=== PATIENT | female | born 2000 | race Two or more races ===

== ENCOUNTER 2023-11-15 14:26 | Outpatient (CLI) | payer OTHER | END 2023-11-15 14:41 | disposition home or self-care (01) | LOC: RAD 14:26 | PROVIDERS: ATTEND General Practice | DX: R05.9 Cough, unspecified (principal); D69.6 Thrombocytopenia, unspecified; R22.1 Localized swelling, mass and lump, neck; M54.2 Cervicalgia; M32.9 Systemic lupus erythematosus, unspecified; D69.9 Hemorrhagic condition, unspecified ==

== ENCOUNTER 2023-11-15 15:18 | Outpatient (CLI) | payer OTHER ==
[2023-11-15 16:08] LABS: HEMATOCRIT 37.6 % (36.0-45.00); HEMOGLOBIN 12.5 g/dL (12.0-15.00); MEAN CELL VOLUME 82.9 fL (80.00-100.00); MEAN CORPUSCULAR HEMOGLOBIN 27.6 pg (27.00-32.0); MEAN CORPUSCULAR HGB CONC 33.3 g/dl (32.0-36.0); PLATELET COUNT 150 K/uL (150-450); RED BLOOD COUNT 4.54 M/uL (4.00-6.00); RED CELL DISTRIBUTION WIDTH 15.5 % (11.5-14.5)
[2023-11-16 08:50] LABS: PH,URINE 6.5 (5.0-8.0); URINE APPEARANCE Clear; URINE BILIRRUBIN Small (NEGATIVE); URINE BLOOD Small; URINE COLOR Dark Yellow; URINE GLUCOSE Negative (NEGATIVE); URINE LEUKOCYTE Small; URINE NITRATE Positive; URINE PROTEIN 30 (NEGATIVE)
[2023-11-16 08:51] LABS: URINE BACTERIA 75.5 uL (0.0-1933); URINE EPITHELIAL CELLS 8.7 uL (0.0-38.8); URINE RBC 17.1 uL (0.0-20.8)
== END 2023-11-15 15:28 | disposition home or self-care (01) ==
LOC: LAB 15:18
PROVIDERS: ATTEND General Practice
DX: R30.0 Dysuria (principal); R31.0 Gross hematuria; R22.1 Localized swelling, mass and lump, neck; R22.2 Localized swelling, mass and lump, trunk; R10.30 Lower abdominal pain, unspecified; R10.9 Unspecified abdominal pain; D69.6 Thrombocytopenia, unspecified

== ENCOUNTER 2023-11-16 08:02 | Outpatient (CLI) | payer OTHER ==
[2023-11-16 09:15] LABS: ALBUMIN 3.5 gm/dL (3.4-5.0); BILIRUBIN TOTAL 0.34 mg/dL (0.3-1.2); CALCIUM 8.8 mg/dL (8.5-10.1); CREATININE SERUM 0.83 mg/dL (0.55-1.02); GFR 86.78; GLOBULINA 4.2 G/DL (2.4-3.5); POTASSIUM 4.06 mEq/L (3.5-5.1); TOTAL PROTEIN 7.7 gm/dL (6.4-8.2)
== END 2023-11-16 08:03 | disposition home or self-care (01) ==
LOC: LAB 08:02
PROVIDERS: ATTEND General Practice
DX: R30.0 Dysuria (principal); R31.0 Gross hematuria; R22.1 Localized swelling, mass and lump, neck; R22.2 Localized swelling, mass and lump, trunk; R10.30 Lower abdominal pain, unspecified; R10.9 Unspecified abdominal pain

== ENCOUNTER 2023-11-16 08:12 | Outpatient (CLI) | payer OTHER | END 2023-11-16 08:30 | disposition home or self-care (01) | LOC: TOM 08:12 | PROVIDERS: ATTEND General Practice | DX: M54.2 Cervicalgia (principal); D69.6 Thrombocytopenia, unspecified; R10.9 Unspecified abdominal pain; M32.9 Systemic lupus erythematosus, unspecified ==

== ENCOUNTER → 2025-05-16 | Emergency (ER) | payer OTHER ==
[~2025-05-16] VITALS: Ht 154.9 cm; Wt 88.0 kg
[~2025-05-16] MED LIST: GUAIFENESIN/DEXTROMETHORPHAN 100MG/10ML BLIST.PACK PO ONE; HYDROXYCHLOROQUINE PO; IPRATROPIU0.2 MG/1 M IH; IPRATROPIUM/ALBUTEROL SULFATE 3 ML AMPUL.NEB IH ONE; IPRATROPIUM/ALBUTEROL SULFATE 3 ML AMPUL.NEB IH SCH; LEVOFLOXACIN500 MG PO; LEVOFLOXACIN750 MG PO; PLAQUENIL PO; TUSSIN DM LIQU118 ML PO; XOPENEX CO1.25 MG/0. IH
[2025-05-16 19:13] LABS: PH,URINE 5.5 (5.0-8.0); URINE APPEARANCE Clear; URINE BILIRRUBIN Negative (NEGATIVE); URINE BLOOD Large; URINE COLOR Yellow; URINE GLUCOSE Negative (NEGATIVE); URINE KETONE Negative (NEGATIVE); URINE LEUKOCYTE Trace; URINE NITRATE Negative; URINE PROTEIN Negative (NEGATIVE); URINE UROBILINOGEN 0.2 E.U./dl
[2025-05-16 19:15] LABS: BASO % 0.9 % (0.1-1.2); EOS # 0.07 (0.04-0.54); EOS % 1.1 % (0.7-7.0); HEMATOCRIT 37.3 % (34.1-44.9); HEMOGLOBIN 12.8 g/dL (11.2-15.7); LYMPH # 1.73 (1.18-3.74); LYMPH % 27.1 % (19.3-53.1); MEAN CORPUSCULAR HEMOGLOBIN 29.1 pg (25.6-32.2); MONO % 7.8 % (4.7-12.5); NEUT # 4.01 (1.56-6.13); NEUT % 62.9 % (34.0-71.1); PLATELET COUNT 132 K/uL (163-369); RED CELL DISTRIBUTION WIDTH 13.4 % (11.6-14.4)
[2025-05-16 19:16] LABS: URINE EPITHELIAL CELLS 71.7 uL (0.0-38.8); URINE RBC 3.3 uL (0.0-20.8)
[2025-05-16 19:19] LABS: TYPE CELLS SQUAMOUS
[2025-05-16 19:37] LABS: COVID-19 AG NEGATIVE (NEGATIVE); INFLUENZA A AG NEGATIVE (NEGATIVE); INFLUENZA B AG NEGATIVE (NEGATIVE)
[2025-05-16 20:05] LABS: ALBUMIN 3.9 gm/dL (3.4-5.0); BILIRUBIN TOTAL 0.45 mg/dL (0.3-1.2); CALCIUM 8.9 mg/dL (8.5-10.1); CREATININE SERUM 0.74 mg/dL (0.55-1.02); GFR 98.14; GLOBULINA 3.6 G/DL (2.4-3.5); POTASSIUM 3.95 mEq/L (3.5-5.1); TOTAL PROTEIN 7.5 gm/dL (6.4-8.2)
[2025-05-16 20:12] LABS: ABG PH 7.387 (7.35-7.45); ABG pCO2 39.8 mmHg (35-45); BASE EXCESS -1.4 mmol/l; BICARBONATE 23.4 mmol/l (23-25); SaO2 96.1 %; Tco2 24.6 mmol/l; allen test SATISFACTORY; mode ROOM AIR; o2 21 %; puncture site RADIAL RIGHT
[2025-05-16 20:13] LABS: ABG PO2 84.6 mmHg (80-100)
== END | disposition home or self-care (01) ==
LOC: ER 16:39
PROVIDERS: General Practice
DX: J06.9 Acute upper respiratory infection, unspecified (principal); E06.3 Autoimmune thyroiditis; Z20.822 Contact with and (suspected) exposure to COVID-19